=== PATIENT | female | born 1955 | race Caucasian/White ===

== ENCOUNTER → 2016-11-22 | Outpatient (CLI) | payer OTHER ==
[~2016-11-22] MED LIST: CALC500T PO; CHOL100013 PO; FAMO-63 PO; LEVO88TA4 PO; PIRO20CA2 PO
== END | disposition home or self-care (01) ==
LOC: PNCL 12:34
PROVIDERS: ATTEND Anesthesiology
DX: M54.16 Radiculopathy, lumbar region (principal)
CPT/HCPCS: 99214

== ENCOUNTER → 2016-12-06 | Outpatient (CLI) | payer OTHER ==
[~2016-12-06] MED LIST changes: +IOHEXOL 180 MG/ML 10 ML VIAL. ONE; +methylPREDNISolone ACETATE 40 MG/ML VIAL. ONE; +methylPREDNISolone ACETATE 80 MG/ML VIAL. ONE
--- NOTE | 2016-12-06 11:23 | PAIN ---
DATE OF SERVICE: 12/06/2016 PROGRESS NOTE FOR PAIN CLINIC DIAGNOSES: Lumbar radiculopathy with lumbar spondylosis and lumbar herniated disk. HISTORY OF PRESENT ILLNESS: The patient is a 61-year-old female who returns for followup status post initial evaluation and preauthorization for a lumbar epidural steroid injection. The patient reports still significant pain in the low back, worse in the left hip and posterior gluteus as well as the posterior thigh, rates it 1 on a scale of 10 currently. The patient reports it is aching and dull with radiating pain in the left leg as noted. The patient reports no new motor or sensory deficits, no new bowel or bladder incontinence or other complaints. The patient reports she has been having some difficulty sleeping. She states about 5 hours a night, sometimes longer, but when she does have the pain awaken her, she has to reposition, get out of bed, change positions and is able to get back to sleep. PHYSICAL EXAMINATION: VITAL SIGNS: The patient's blood pressure 132/76, pulse 56, respirations are 18, temperature 98.0 degrees Fahrenheit. Height is 5 feet 6 inches, weight is 144 pounds. GENERAL: The patient is awake, alert, oriented, appropriate, very pleasant demeanor. HEENT: Head shows normocephalic, atraumatic. The patient wears eyeglasses. Extraocular movements are intact and symmetrical. Oral cavity shows mucous membranes moist and pink. Dentition is intact. NECK: Shows anterior throat supple without palpable lymphadenopathy noted. Swallow reflex is symmetrical. CHEST: Shows normal on inspection. Breath sounds are clear to auscultation bilaterally. HEART: Shows S1 and S2 clear. ABDOMEN: Soft, nontender, nondistended. No palpable organomegaly. No rebound or guarding demonstrated. BACK: Shows spine grossly in the midline. Lumbar paraspinous muscle shows some symmetrical without atrophy, hypertrophy or asymmetry. Mild tenderness to moderate tenderness in the low lumbar distribution diffusely without radiation. No tenderness over the sacrum and sacroiliac regions. The patient has good rotation and motion of the lumbar spine, both laterally as well as extension and flexion without difficulty. EXTREMITIES: The patient's lower extremities show deep tendon reflexes at 2+ in the patellar, 1+ tendo-calcaneus tendons are equal. Motor exam is strong with 5/5 dorsiflexion and extension as well as quadriceps and hamstring flexion and are symmetrical. Options were discussed with the patient and the patient's old chart was reviewed as her current medication regimen updated. Current review of systems updated today as well. We will proceed with a lumbar epidural steroid injection today with fluoroscopic guidance. Risks were again discussed including, but not limited to bleeding, infection, possibility of epidural hematoma, subsequent neurologic compromise, dural puncture, headaches, spinal cord and/or nerve damage, side effects of steroid medication and poor results regarding pain control. The patient understands and wishes to proceed. The patient will return to clinic in approximately 2 weeks for followup, was counseled on return appointment, activity level, and side effects to be aware of. DIAGNOSES: Lumbar radiculopathy with lumbar spondylosis and lumbar herniated disk. PROCEDURE: Lumbar epidural steroid injection in translaminar approach at the L5-S1 level using C-arm fluoroscopic guidance under sterile prep and drape using local anesthetic. MEDICATION INJECTED: A total of 120 mg of Depo-Medrol plus 10 mL of preservative-free normal saline, and 2 mL of Isovue for contrast. CONDITION AT DISCHARGE: Stable. The patient tolerated the procedure well, had no complications. DRAKE WHITE MD DR: ANABELLA/rg JOB#: [id number] / [id number]
== END | disposition home or self-care (01) ==
LOC: PNCL 09:46
PROVIDERS: ATTEND Anesthesiology
DX: M51.16 Intervertebral disc disorders with radiculopathy, lumbar region (principal); M47.26 Other spondylosis with radiculopathy, lumbar region
CPT/HCPCS: 62323; J1030; J1040

== ENCOUNTER → 2016-12-20 | Outpatient (CLI) | payer OTHER ==
--- NOTE | 2016-12-20 19:26 | PAIN ---
DATE OF SERVICE: 12/20/2016 DIAGNOSES: Lumbar radiculopathy with lumbar spondylosis and lumbar herniated disk. HISTORY OF PRESENT ILLNESS: The patient is a 61-year-old female who returns for followup status post lumbar epidural steroid injection x 1. The patient reports about 20% improvement after the first injection in the low back and left lower extremity. The patient reports that the leg is doing much better, but still pain in the gluteus and the low back on the left side. The patient reports as a 1 on a scale of 10 at its worst and is doing quite a bit better as far as activity level goes. Walking, standing, and changing position is much more comfortable performing activities of daily living without significant impairments. Reports, she is sleeping well at night about 8 hours, does not awaken her from sleep much, feels much better with sitting or lying down. The patient has been doing some light jogging and running as well, which has been fairly tolerable, but still a significant pain in the low back and left hip. The patient reports it as an aching quality, occasionally shooting, but mostly staying in the low back and hips PHYSICAL EXAMINATION: VITAL SIGNS: Today, the patient's blood pressure is 126/78, pulse 78, respirations are 18, temperature 98.1 degrees Fahrenheit. Height is 5 feet 6 inches, weight is 144 pounds. GENERAL: The patient is awake, alert, oriented, appropriate, very pleasant demeanor. HEENT: Head shows normocephalic, atraumatic. Extraocular movements are intact and symmetrical. Oral cavity shows mucous membranes moist and pink. Dentition is intact. NECK: Shows anterior throat supple without palpable lymphadenopathy noted. Swallow reflex is symmetrical. CHEST: Shows normal on inspection. Breath sounds are clear to auscultation bilaterally. HEART: Shows S1 and S2 clear. No murmurs auscultated. ABDOMEN: Soft, nontender, nondistended. No palpable organomegaly is noted. No rebound or guarding demonstrated. BACK: Shows spine grossly in midline. Lumbar paraspinous muscle shows symmetrical on inspection with palpation, shows some moderate tenderness with palpation bilaterally. EXTREMITIES: Lower extremities show deep tendon reflexes 2+ in the patellar, 1+ tendo calcaneus tendons. Motor exam is strong with 5/5 dorsiflexion, extension, quadriceps and hamstring flexion equal and symmetrical. Options were discussed with the patient and the patient's old chart was reviewed as her current medication regimen updated. Current review of systems updated today and we will proceed with a second lumbar epidural steroid injection today with fluoroscopic guidance. Risks were again discussed including, but not limited to bleeding, infection, possibility of epidural hematoma and subsequent neurologic compromise, dural puncture, headaches, spinal cord and/or nerve damage, side effects of steroid medication and poor results regarding pain control. The patient understands and wishes to proceed. The patient will return to clinic in approximately 2 weeks for followup. She was counseled to return appointment, activity level and side effects to be aware of. DIAGNOSES: Lumbar radiculopathy with lumbar spondylosis, lumbar herniated disk. PROCEDURES: Lumbar epidural steroid injection in translaminar approach in the L5-S1 level with C-arm fluoroscopic guidance under sterile prep and drape with local anesthetic. MEDICATION INJECTED: Total of 120 mg Depo-Medrol plus 10 mL of preservative-free normal saline and 2 mL of Isovue for contrast. CONDITION AT DISCHARGE: Stable. The patient tolerated procedure well, had no complications. DRAKE WHITE MD DR: ANBAELLA/rg JOB#: [id number] / [id number]
== END | disposition home or self-care (01) ==
LOC: PNCL 12:45
PROVIDERS: ATTEND Anesthesiology
DX: M51.16 Intervertebral disc disorders with radiculopathy, lumbar region (principal); M47.26 Other spondylosis with radiculopathy, lumbar region
CPT/HCPCS: 62323; J1030; J1040

== ENCOUNTER → 2017-01-10 | Outpatient (CLI) | payer OTHER ==
--- NOTE | 2017-01-11 00:49 | PN ---
DATE: 01/10/2017 DIAGNOSES: Lumbar radiculopathy with lumbar spondylosis and lumbar herniated disk. HISTORY OF PRESENT ILLNESS: The patient is a 61-year-old female who returns for followup status post lumbar epidural steroid injection times 2. The patient reports doing much better about 80% or so. After last injection, the patient is very pleased with her progress thus far no new motor or sensory deficits or other complaints, still some pain in the low back, more on the left side, but not much at all, radiating to the lower extremity. The patient reports the pain to 4 on a scale of 10, it is absolutely worst as a 1. Otherwise, the patient reports she is sleeping well at night, does not awaken her from sleep. She has been increasing her activity, still somewhat apprehensive in about increasing too much of activity, but doing much better. The patient reports no new motor or sensory deficits. No new bowel or bladder incontinence or other complaints. PHYSICAL EXAMINATION: VITAL SIGNS: The patient's blood pressure 118/83, pulse 71, respirations 20, temperature 97.8 degrees Fahrenheit, height is 5 feet 6 inches, weight 145 pounds. GENERAL: The patient is awake, alert, oriented, appropriate, very pleasant demeanor. HEENT: Shows normocephalic, atraumatic. Extraocular movements are intact and symmetrical. Oral cavity shows mucous membranes moist and pink. Dentition is intact. NECK: Shows anterior throat supple without palpable lymphadenopathy noted. Swallow reflex is symmetrical. CHEST: Shows normal on inspection. Breath sounds are clear to auscultation bilaterally. HEART: Shows S1 and S2 clear. ABDOMEN: Soft, nontender, nondistended. BACK: Shows spine grossly in midline. Lumbar paraspinous muscle shows symmetrical, on inspection with palpation shows some moderate tenderness along the low lumbar distribution, more in the left than the right, but only very diffusely and only very mildly. No radiation demonstrated. The patient's lower extremities show deep tendon reflexes at 2+ in the patellar, 1+ tendo-calcaneus tendons. Motor exam is strong with 5/5 dorsiflexion, extension, quadriceps and hamstring flexion and equal. Peripheral pulses are 2+ posterior tibial bilaterally. No peripheral edema is noted. Options were discussed with the patient and the patient's old chart was reviewed as her current medication regimen updated. Current review of systems updated today as well. We will proceed with a third in a series of lumbar epidural steroid injection with fluoroscopic guidance. Risks were again discussed including, but not limited to bleeding, infection, possibility of epidural hematoma and subsequent neurologic compromise, dural puncture, headaches, spinal cord and/or nerve damage, side effects of steroid medication and poor results regarding pain control. The patient understands and wishes to proceed. The patient will return to clinic in approximately 2 weeks for followup, was counseled on return appointment, activity level and side effects to be aware of. DIAGNOSIS: Lumbar radiculopathy with lumbar spondylosis, and lumbar herniated disk. PROCEDURE: Lumbar epidural steroid injection in translaminar approach at L5-S1 level using C-arm fluoroscopic guidance under sterile prep and drape using local anesthetic. MEDICATION INJECTED: A total of 120 mg Depo-Medrol plus 10 mL of preservative-free normal saline, and 2 mL of Isovue for contrast. CONDITION ON DISCHARGE: Stable. The patient tolerated the procedure well, had no complications. DRAKE WHITE MD DR: ANABELLA/rg JOB#: [id number] / [id number]
== END | disposition home or self-care (01) ==
LOC: PNCL 13:19
PROVIDERS: ATTEND Anesthesiology
DX: M51.16 Intervertebral disc disorders with radiculopathy, lumbar region (principal); M47.26 Other spondylosis with radiculopathy, lumbar region
CPT/HCPCS: 62323; J1030; J1040

== ENCOUNTER → 2017-07-26 | Outpatient (CLI) | payer OTHER | END | disposition home or self-care (01) | LOC: PNCL 10:28 | DX: M51.16 Intervertebral disc disorders with radiculopathy, lumbar region (principal); M47.26 Other spondylosis with radiculopathy, lumbar region; Z98.890 Other specified postprocedural states; Z79.899 Other long term (current) drug therapy | CPT/HCPCS: 99212 ==

== ENCOUNTER → 2017-08-16 | Outpatient (CLI) | payer OTHER ==
[~2017-08-16] MED LIST changes: -CALC500T PO; -CHOL100013 PO; -FAMO-63 PO; +IOHEXOL 180 MG/ML 10 ML VIAL.; -IOHEXOL 180 MG/ML 10 ML VIAL. ONE; -LEVO88TA4 PO; -PIRO20CA2 PO; +methylPREDNISolone ACETATE 40 MG/ML VIAL.; -methylPREDNISolone ACETATE 40 MG/ML VIAL. ONE; +methylPREDNISolone ACETATE 80 MG/ML VIAL.; -methylPREDNISolone ACETATE 80 MG/ML VIAL. ONE
== END | disposition home or self-care (01) ==
LOC: PNCL 07:45
DX: M51.16 Intervertebral disc disorders with radiculopathy, lumbar region (principal); M47.26 Other spondylosis with radiculopathy, lumbar region
CPT/HCPCS: 62323; J1030; J1040; Q9965

== ENCOUNTER → 2018-03-18 | Outpatient (CLI) | payer OTHER ==
[~2018-03-18] MED LIST changes: +BACL10TA PO; +CALC500T PO; +CHOL100013 PO; +CYAN500L4 SL; +CYCL10TA2 PO; +ESTR42.53 VG; +FAMO-63 PO; -IOHEXOL 180 MG/ML 10 ML VIAL.; +LEVO88TA4 PO; +MIRA25TA PO; +NITR100C63 PO; +OXYB5TAB33 PO; +PIRO20CA2 PO; -methylPREDNISolone ACETATE 40 MG/ML VIAL.; -methylPREDNISolone ACETATE 80 MG/ML VIAL.
--- NOTE | 2018-03-19 01:14 | PAIN ---
DATE OF SERVICE: 03/18/2018 DIAGNOSIS: Lumbar radiculopathy with lumbar spondylosis and lumbar herniated disk. HISTORY OF PRESENT ILLNESS: The patient is a 62-year-old female who returns for followup status post lumbar epidural steroid injection x 1, 08/16/2017. The patient did very well with 90% improvement in the low back and left lower extremity pain. The patient reports still significant pain in the low back and left leg, worse with standing, walking, changing positions, better with lying down, but is beginning to awaken her from sleep again. The patient reports it is coming back over the past 2-3 weeks and was doing very well for several months after the injection. The patient reports pain now at 6 on a scale of 10 at its worst, 5 on average, 2 at least and is a 5 today. The patient reports worse with standing, walking, changing positions, difficulty with lying on her back, which does awaken her from sleep, which is better with lying on her right side. The patient reports no new motor or sensory deficit. She was initially increasing her activity with greater ease and comfort, distance walking, doing work activities, household activities, traveling with greater ease getting in and out of the car. The patient reports no motor or sensory deficits. No loss of motor function, but significant fatigability in the lower extremities with activity. The patient reports the pain is sharp in the low back, aching and dull, tight, shooting, cramping and becoming more radiating, more constant. PHYSICAL EXAMINATION:: VITAL SIGNS: Blood pressure is 134/87, pulse 74, respirations are 18, temperature 97.4 degrees Fahrenheit, height is 5 feet 6 inches, weight 143 pounds. GENERAL: The patient is awake, alert, oriented, appropriate, very pleasant demeanor. HEENT: Shows normocephalic, atraumatic. Extraocular movements are intact and symmetrical. Oral cavity: Mucous membranes are moist and pink. Dentition is intact. NECK: Shows anterior throat supple without palpable lymphadenopathy noted. Swallow reflex is symmetrical. CHEST: Shows normal on inspection. Breath sounds are clear to auscultation bilaterally. HEART: Shows S1, S2 clear. No murmurs auscultated. ABDOMEN: Soft, nontender, nondistended. No palpable organomegaly is noted. No rebound or guarding demonstrated. BACK: Shows spine grossly in the midline. Normal appearing thoracic kyphosis and minor flattening of lumbar lordotic curvature. Lumbar paraspinous muscle shows symmetrical on inspection. On palpation shows some mild tenderness, but only diffusely without radiation. EXTREMITIES: Lower extremities show deep tendon reflexes at 2+ in the patellar, 1+ tendo-calcaneus tendons. Motor exam is strong with 5/5 dorsiflexion and extension, equal bilaterally. Peripheral pulses are 1+ posterior tibia. No peripheral edema is noted. Options were discussed with the patient. The patient's old chart was reviewed as is her current medication regimen updated. Current review of systems is updated today as well. We will preauthorize the patient for a second in the series of lumbar epidural steroid injection as she had done very well with the first injection, still with radicular pain in L5-S1 dermatomal pattern in the lower extremities, worse on the left side. The patient will continue with stretching and strengthening exercises on her own as she has been doing this and walking daily as best she can tolerate. We encouraged her to continue both of these. The patient will follow up once preapproval is obtained and we will plan on lumbar epidural steroid injection at that time. DRAKE WHITE MD DR: ANABELLA/rg JOB#: [id number] / [id number]
== END | disposition home or self-care (01) ==
LOC: PNCL 14:06
PROVIDERS: ATTEND Anesthesiology
DX: M51.16 Intervertebral disc disorders with radiculopathy, lumbar region (principal); M47.896 Other spondylosis, lumbar region
CPT/HCPCS: 99212

== ENCOUNTER → 2018-04-17 | Outpatient (CLI) | payer OTHER ==
[~2018-04-17] MED LIST changes: +IOHEXOL 180 MG/ML 10 ML VIAL. ONE; +methylPREDNISolone ACETATE 40 MG/ML VIAL. ONE; +methylPREDNISolone ACETATE 80 MG/ML VIAL. ONE
--- NOTE | 2018-04-17 18:17 | PAIN ---
DATE OF SERVICE: 04/17/2018 PROGRESS NOTE FOR PAIN CLINIC DIAGNOSIS: Lumbar radiculopathy with lumbar spondylosis and lumbar herniated disk. HISTORY OF PRESENT ILLNESS: The patient is a 62-year-old female who returns for followup status post lumbar epidural steroid injection x 1 on 08/16/2017. The patient did very well with this with approximately 90% improvement. The pain began to return and we had seen her in March 2018, was waiting preauthorization. She has obtained that now and would like to proceed with a lumbar epidural steroid injection. The patient reports still pain in the low back, somewhat in the left lower extremity greater than right, posterior gluteus, posterior thigh, posterior calf, mostly in the back itself. The patient reports it is a 9 on a scale of 10 at its worst, 3 on average, 0 its least and is a 3 today. The patient reports it is dull, stabbing, off and on in intensity, worse with walking, standing, changing positions, better with sitting or lying down. It does not awaken her from sleep at night. The patient reports it is becoming little bit worse now than it was a month ago, but no new motor or sensory deficits. The patient reports no bowel or bladder incontinence or other complaints. PHYSICAL EXAMINATION: VITAL SIGNS: The patient's blood pressure is 126/71, pulse 87, respirations are 18, temperature 98.0 degrees Fahrenheit. Height is 5 feet 6 inches, weight is 143 pounds. GENERAL: She is awake, alert, oriented, appropriate, very pleasant demeanor. HEENT: Head shows normocephalic, atraumatic. Extraocular movements are intact and symmetrical. Oral cavity, mucous membranes moist and pink. Dentition is intact. NECK: Shows anterior throat supple without palpable lymphadenopathy noted. Swallow reflex symmetrical. CHEST: Shows normal with inspection. Breath sounds clear to auscultation bilaterally. HEART: Shows S1, S2 clear. No murmurs auscultated. ABDOMEN: Soft, nontender, nondistended. No palpable organomegaly is noted. No rebound or guarding demonstrated. BACK: Shows spine grossly in the midline. Normal appearing thoracic kyphosis and lumbar lordotic curvature. Lumbar paraspinous muscle shows symmetrical on inspection, on palpation shows mild to moderate tenderness, but only diffusely in the lumbar paraspinous muscles in the low lumbar distribution, slightly more on the left than the right, but symmetrical. No trigger points or radiation. The patient has good rotational motion of the lumbar spine both laterally as well as extension and flexion without difficulty. EXTREMITIES: The patient's lower extremities showed 2+ in the patellar and 1+ in the tendo calcaneus tendons. Motor exam is strong with 5/5 dorsiflexion, extension, quadriceps and hamstring flexion bilaterally. Peripheral pulses are 1+. No peripheral edema is noted. Options were discussed with the patient. The patient's old chart was reviewed as well as her current medication regimen updated. Current review of systems updated today as well. We will proceed with a second in the series of lumbar epidural steroid injection under fluoroscopic guidance. Risks were again discussed including, but not limited to, bleeding, infection, possibility of epidural hematoma, subsequent neurologic compromise, dural puncture, headaches, spinal cord and/or nerve damage, side effects of steroid medication and poor results regarding pain control. The patient understands and wished to proceed. The patient will return to clinic in approximately 2 weeks for followup, was counseled on return appointment, activity level and side effects to be aware of. DIAGNOSES: Lumbar radiculopathy with lumbar spondylosis, lumbar herniated disk. PROCEDURE: Lumbar epidural steroid injection, translaminar approach at L5-S1 level using C-arm fluoroscopic guidance under sterile prep and drape using local anesthetic. MEDICATION INJECTED: A total of 120 mg Depo-Medrol plus 10 mL of preservative-free normal saline and 2 mL of Isovue for contrast. CONDITION AT DISCHARGE: Stable. The patient tolerated procedure well, had no complications. DRAKE WHITE MD DR: ANABELLA/rg JOB#: [id number] / [id number]
== END | disposition home or self-care (01) ==
LOC: PNCL 14:05
PROVIDERS: ATTEND Anesthesiology
DX: M51.16 Intervertebral disc disorders with radiculopathy, lumbar region (principal); M47.26 Other spondylosis with radiculopathy, lumbar region
CPT/HCPCS: 62323; J1030; J1040; Q9965

== ENCOUNTER → 2018-05-07 | Outpatient (CLI) | payer OTHER ==
[~2018-05-07] MED LIST changes: -IOHEXOL 180 MG/ML 10 ML VIAL. ONE; -methylPREDNISolone ACETATE 40 MG/ML VIAL. ONE; -methylPREDNISolone ACETATE 80 MG/ML VIAL. ONE
--- NOTE | 2018-05-07 22:09 | PAIN ---
DATE OF SERVICE: 05/07/2018 PROGRESS NOTE FOR PAIN CLINIC DIAGNOSES: Lumbar radiculopathy with lumbar spondylosis and lumbar herniated disk. HISTORY OF PRESENT ILLNESS: The patient is a 62-year-old female who returns for followup status post lumbar epidural steroid injection x 1 with reports about 80% improvement for the first 3 weeks since the injection. The patient reports it is beginning to return more in the left side, in the back into the left posterior hip slightly but across the low back itself into the posterior gluteus, posterior thigh, posterior calf, much better than it was. She has been increasing her activity with greater ease and walking, changing positions, doing work activities as well as home activities with greater ease and comfort, traveling with better ease. The patient reports no new motor or sensory deficits and no new bowel or bladder incontinence, feels much better with sitting or lying down but still with some radicular pain into the left lower extremity as noted. The patient reports it is tight, also cramping in the back with shooting, radiating pain in the left lower extremity as described. The patient reports it is a 3 on a scale of 10 at its worst, on average and a 1 at its least and is a 3 today. The patient reports no new motor or sensory deficits and no bowel or bladder incontinence. PHYSICAL EXAMINATION: VITAL SIGNS: The patient's blood pressure 136/85, pulse 67, respirations are 18 and temperature is 98.3 degrees Fahrenheit. Height 5 feet 6 inches and weighs 142 pounds. GENERAL: The patient is awake, alert, oriented, appropriate and very pleasant demeanor. HEENT: Head shows normocephalic and atraumatic. Extraocular movements are intact and symmetrical. Oral cavity: Mucous membranes moist and pink. Dentition is intact. NECK: Shows anterior throat supple without palpable lymphadenopathy noted. Swallow reflex is symmetrical. CHEST: Shows normal on inspection. Breath sounds clear to auscultation bilaterally. HEART: Shows S1 and S2 clear. No murmurs auscultated. ABDOMEN: Soft, nontender and nondistended. No palpable organomegaly is noted. No rebound or guarding demonstrated. BACK: Shows spine grossly in the midline. Normal appearing thoracic kyphosis and lumbar lordotic curvature. Lumbar paraspinous musculature shows symmetrical on inspection, on palpation shows some moderate tenderness but only diffusely without radiation. The patient has good rotational motion of the lumbar spine, both laterally as well as extension and flexion without significant pain reported. EXTREMITIES: Lower extremities show deep tendon reflexes at 2+ in the patellar, 1+ tendo-calcaneus tendons are equal. Motor exam is strong with 5/5 dorsiflexion and extension as well as quadriceps and hamstring flexion. The patient has a mild straight leg raise on the left, which is positive about 45 degrees but decreased with knee flexion almost completely. Right side is negative. Gaenslen's and Dom's maneuvers are negative bilaterally. The patient is able to stand, stand on her toes without significant difficulty, walks with a slight favoring gait, does appear to limp slightly with the left lower extremity being favored but only very moderately, does not use any assistive devices to ambulate. Options were discussed with the patient. The patient's old chart was reviewed as well as her current medication regimen updated. Current review of systems updated today as well. We will preauthorize the patient for a second lumbar epidural steroid injection. Did very well after the first injection, still with a L5-S1 dermatomal distribution radiculopathy in the left lower extremity. Again, the patient will continue with stretching and strengthening exercises that she has been doing, will continue walking daily as much as she can tolerate and we will have her return in approximately 2 weeks for a second lumbar epidural steroid injection at that time. DRAKE WHITE MD DR: ANABELLA/rg JOB#: [id number] / [id number]
== END | disposition home or self-care (01) ==
LOC: PNCL 14:54
PROVIDERS: ATTEND Anesthesiology
DX: M47.26 Other spondylosis with radiculopathy, lumbar region (principal); M51.26 Other intervertebral disc displacement, lumbar region
CPT/HCPCS: G0463

== ENCOUNTER → 2018-05-13 | Outpatient (CLI) | payer OTHER ==
[~2018-05-13] MED LIST changes: -CALC500T PO; +CALC500T31 PO; +IOHEXOL 180 MG/ML 10 ML VIAL. ONE; +methylPREDNISolone ACETATE 40 MG/ML VIAL. ONE; +methylPREDNISolone ACETATE 80 MG/ML VIAL. ONE
--- NOTE | 2018-05-14 03:41 | PAIN ---
DATE OF SERVICE: 05/13/2018 PROGRESS NOTE FOR PAIN CLINIC DIAGNOSES: Lumbar radiculopathy with lumbar spondylosis and lumbar herniated disk. HISTORY OF PRESENT ILLNESS: The patient is a 62-year-old female who returns for followup status post evaluation and preauthorization for a second lumbar epidural steroid injection. She did very well after the first injection about 80% improvement, now the pain returning low back and left lower extremity as it was previously. The patient reports no new motor or sensory deficits, no new bowel or bladder incontinence or other complaints. The patient reports the pain is 3 on a scale of 10 at its worst, least and its average and a 3 today. The patient reports it is dull, aching, shooting into the left leg as it was, posterior gluteus, posterior thigh, posterior calf, worse with walking, standing, better with sitting or lying down, does not awaken her from sleep recently. The patient reports no other changes. PHYSICAL EXAMINATION: VITAL SIGNS: The patient's blood pressure 124/80, pulse 67, respirations are 18, temperature 98.3 degrees Fahrenheit, height is 5 feet 6 inches and weight is 142 pounds. GENERAL: The patient is awake, alert, oriented, appropriate and very pleasant demeanor. HEENT: Head shows normocephalic and atraumatic. Extraocular movements are intact and symmetrical. Oral cavity: Mucous membranes are moist and pink. Dentition is intact. NECK: Shows anterior throat is supple without palpable lymphadenopathy noted. Swallow reflex is symmetrical. CHEST: Shows normal with inspection. Breath sounds are clear to auscultation bilaterally. HEART: Shows S1 and S2 clear. No murmurs are auscultated. ABDOMEN: Soft, nontender and nondistended. No palpable organomegaly is noted. No rebound or guarding demonstrated. BACK: Shows spine grossly in the midline. Normal appearing thoracic kyphosis and some slight flattening of the lumbar lordotic curvature. Lumbar paraspinous muscle shows symmetrical on inspection. On palpation shows some moderate tenderness but only diffusely in the low lumbar distribution bilaterally. The patient has good rotational motion of the lumbar spine both laterally as well as extension and flexion without difficulty. EXTREMITIES: Lower extremities show deep tendon reflexes at 2+ in the patella and 1+ tendo calcaneus tendons are equal. Motor exam is strong with 5/5 dorsiflexion and extension as well as quadriceps and hamstring flexion and equal and symmetrical bilaterally. Options were discussed with the patient. The patient's old chart was reviewed as was her current medication regimen updated. Current review of systems updated today as well. We will proceed with a lumbar epidural steroid injection #2 in the series with fluoroscopic guidance. Risks were again discussed including, but not limited to bleeding, infection, possibility of epidural hematoma, subsequent neurologic compromise, dural puncture, headaches, spinal cord and/or nerve damage, side effects of steroid medication and poor results regarding pain control. The patient understands and wished to proceed. The patient will return to the clinic in approximately 2 weeks for followup, was counseled as to return appointment, activity level and side effects to be aware of. DIAGNOSIS: Lumbar radiculopathy with lumbar spondylosis, lumbar herniated disk. PROCEDURE: Lumbar epidural steroid injection, translaminar approach L5-S1 level using C-arm fluoroscopic guidance under sterile prep and drape using local anesthetic. MEDICATION INJECTED: A total of 120 mg Depo-Medrol plus 10 mL of preservative-free normal saline and 2 mL of Isovue for contrast. CONDITION AT DISCHARGE: Stable. The patient tolerated the procedure well and had no complications. DRAKE WHITE MD DR: ANABELLA/rg JOB#: [id number] / [id number]
== END | disposition home or self-care (01) ==
LOC: PNCL 14:40
PROVIDERS: ATTEND Anesthesiology
DX: M51.16 Intervertebral disc disorders with radiculopathy, lumbar region (principal); M47.26 Other spondylosis with radiculopathy, lumbar region
CPT/HCPCS: 62323; J1030; J1040; Q9965

== ENCOUNTER → 2020-10-05 | Outpatient (CLI) | payer OTHER ==
[~2020-10-05] MED LIST changes: -IOHEXOL 180 MG/ML 10 ML VIAL. ONE; -methylPREDNISolone ACETATE 40 MG/ML VIAL. ONE; -methylPREDNISolone ACETATE 80 MG/ML VIAL. ONE
--- NOTE | 2020-10-05 10:19 | PDOC ---
Progress Note - Pain Clinic Date of Service: DOS: DATE: 10/05/20 TIME: 10:17 Diagnosis: Dx: Lumbar radiculopathy with lumbar spondylosis lumbar degenerative disc disease and lumbar herniated disc History or Present Illness: HPI: 65-year-old female returns for follow-up status post lumbar epidural steroid injection most recently May 13, 2018. Patient did very well about 80 to 90% 3 months or so the pain began to return. Patient reports that for that she is doing very well with distance walking doing household activities work activities greater ease and comfort travel with greater ease and comfort sleeping through the night patient reports still better with sitting and laying down does not awaken her from sleep frequently can occasionally patient reports is worse with standing walking changing positions getting up from a seated position patient rates her pain is a 10 on scale 10 is worse over the past week 5 on average to its least is a 5 today. Patient describes pain is radiating burning in the low back rating the right lower extremity posterior gluteus posterior thigh posterior calf and radicular pattern. Patient has history of lumbar herniated disc at the L5-S1 level. Patient reports no new motor or sensory deficits no new bowel or bladder incontinence or other complaints. Patient reports she been helping her grandson with home schooling over the past year sitting in a prolonged position of leaning to her right side which she feels is increased pain and has noticed it much more significantly over the past several months as noted. Patient has been doing stretching strength exercises daily and she learned from physical therapy about a year ago and reports this helps but does not decrease the pain long-term. Physical Exam: VS: Blood pressure is 125/76 pulse 68 respirations 18 temperature 98.2 F height is 5 feet 6 inches weight 143 pounds PE: PHYSICAL EXAMINATION: GENERAL: The patient is awake, alert, oriented, appropriate, very pleasant demeanor HEENT: Shows normocephalic, atraumatic. Extraocular movements are intact and symmetrical. Oral cavity: Mucous membranes moist and pink. Dentition is intact. NECK: Shows anterior throat supple without palpable lymphadenopathy noted. Swallow reflex symmetrical. CHEST: Shows normal on inspection. Breath sounds are clear bilaterally, no rales rhonchi wheezes auscultated. HEART: Shows S1, S2 clear. No murmurs auscultated. ABDOMEN: Soft, nontender, nondistended. No palpable organomegaly is noted. No rebound or guarding demonstrated. BACK: Shows spine grossly in the midline. Normal-appearing cervical lordotic curvature. There is slightly increased thoracic kyphosis, some minor flattening of the lumbar lordotic curvature. Lumbar paraspinous muscles show symmetrical on inspection, on palpation shows some moderate tenderness diffusely throughout the upper, middle and lower distribution of the paraspinous muscles bilaterally and also into the lower thoracic paraspinous musculature, firm and tender, but without specific trigger points, without radiation of pain. The patient has good rotational motion of the lumbar spine, both laterally as well as extension and flexion without significant difficulty. No tenderness over the spinous processes, sacrum or sacroiliac regions. EXTREMITIES: Lower extremities show deep tendon reflexes 2+ in the patellar and tendo calcaneus tendons. Motor exam is 4 on a scale of 5 with right dorsiflexion, extension, quadriceps and hamstring flexion and 5/5 on the left. Peripheral pulses are 1+ posterior tibial. No peripheral edema is noted bilaterally. Lower extremities are warm and dry to touch, equal in color and appearance. Straight leg raise noted to be [] on the right about 45 degrees, left side is negative. Gaenslen's and Dom's maneuvers are negative bilateral as well. SKIN: Shows warm and dry, good turgor. No edema. No sores, rashes or bruising throughout. Procedure: Procedure: Options were discussed with the patient. Patient chart was reviewed as her [place] medication regimen updated current review of systems updated today as well. We will preauthorize patient for lumbar epidural steroid injections doing very well with these in the past with similar radicular pattern in the L5-S1 distribution right side. Meantime patient will continue with stretching strength exercises also oral analgesics and anti-inflammatories as currently. Medication Injected: Med Injected: None Condition at Discharge: Condition at Discharge: Condition at discharge is stable. DRAKE WHITE MD Oct 05, 2020 10:19
== END | disposition home or self-care (01) ==
LOC: PNCL 09:30
PROVIDERS: ATTEND Anesthesiology
DX: M51.16 Intervertebral disc disorders with radiculopathy, lumbar region (principal); M47.26 Other spondylosis with radiculopathy, lumbar region; Z79.899 Other long term (current) drug therapy
CPT/HCPCS: 99212; G0463

== ENCOUNTER → 2020-10-17 | Outpatient (CLI) | payer OTHER ==
[~2020-10-17] MED LIST changes: +IOHEXOL 180 MG/ML 10 ML VIAL. ONE; +methylPREDNISolone ACETATE 40 MG/ML VIAL. ONE; +methylPREDNISolone ACETATE 80 MG/ML VIAL. ONE
--- NOTE | 2020-10-17 09:31 | PDOC4 ---
PROCEDURE Procedure Patient was consented for lumbar epidural steroid injection. Risks were dis cussed including but not limited to: Bleeding, infection, possibility of epidural hematoma and subsequent neurological compromise, dural puncture, headaches, spinal cord and/or nerve damage, side effects of steroid medication, and poor results regarding pain control. Patient understands and wished to proceed. Procedure is lumbar epidural steroid injection under local anesthetic using sterile prep and drape at the L5 S1 level using C-arm fluoroscopic guidance in both AP and lateral views medications injected is 120 mg Depo-Medrol +10mL preservative-free normal saline and 2 mL contrast- condition at discharge is stable patient tolerated procedure well had no complications. DRAKE WHITE MD Oct 17, 2020 09:31
--- NOTE | 2020-10-17 09:31 | PDOC ---
Progress Note - Pain Clinic Date of Service: DOS: DATE: 10/17/20 TIME: 09:28 Diagnosis: Dx: Lumbar radiculopathy with lumbar spondylosis, herniated lumbar disc and lumbar degenerative disc disease History or Present Illness: HPI: 65-year-old female returns for follow-up status post initial valuation and preauthorization for lumbar epidural steroid injection. Patient reports still significant pain low back right lower extremity posterior gluteus posterior thigh posterior calf radiating to the ankle worse with walking standing changing positions describes radiating burning aching in the low back shooting and tight in the right lower extremity worse with activity patient reports she stumbled while doing a 5K race a few weeks ago and this is exacerbated the pain as well patient rates pain is a 10 on scale 10 is worse over the past week 9 on average 5 its least and is a 5 today. Patient reports no new motor or sensory deficits no new bowel or bladder cons or complaints. Patient reports better with sitting or laying down generally is not awaken her from sleep at night with walking standing, more difficult especially with some increased fatigability with the right lower extremity. Physical Exam: VS: Blood pressure is 132/81 pulse 63 respirations 18 temperature 98.6 F is 5 feet 6 inches weight 142 pounds PE: PHYSICAL EXAMINATION: GENERAL: The patient is awake, alert, oriented, appropriate, very pleasant demeanor HEENT: Shows normocephalic, atraumatic. Extraocular movements are intact and symmetrical. Oral cavity: Mucous membranes moist and pink. NECK: Shows anterior throat supple without palpable lymphadenopathy noted. Swallow reflex symmetrical. CHEST: Shows normal on inspection. Breath sounds are clear bilaterally. HEART: Shows S1, S2 clear. No murmurs auscultated. ABDOMEN: Soft, nontender, nondistended. BACK: Shows spine grossly in the midline. Normal-appearing cervical lordotic curvature. There is slightly increased thoracic kyphosis, some minor flattening of the lumbar lordotic curvature. Lumbar paraspinous muscles show symmetrical on inspection, on palpation shows some moderate tenderness diffusely throughout the upper, middle and lower distribution of the paraspinous muscles without specific trigger points, without radiation of pain. The patient has good rotational motion of the lumbar spine, both laterally as well as extension and flexion without significant difficulty. EXTREMITIES: Lower extremities show deep tendon reflexes 2 in the patellar and tendo calcaneus tendons. Motor exam is 4 on a scale of 5 with right dorsiflexion, extension, quadriceps and hamstring flexion and 5/5 on the left. Peripheral pulses are 1+ posterior tibial. No peripheral edema is noted bilaterally. Lower extremities are warm and dry to touch, equal in color and appearance. SKIN: Shows warm and dry, good turgor. No edema. No sores, rashes or bruising throughout. Procedure: Procedure: Options were discussed with patient. Patient chart was reviewed as her current medication regimen updated current review of systems updated today as well. We will proceed with a lumbar epidural steroid injections today as the first in the series of fluoroscopic guidance. Risks were discussed including but not limited to: Bleeding, infection, possibility of epidural hematoma and subsequent neurological compromise, dural puncture, headaches, spinal cord and/or nerve damage, side effects of steroid medication, and poor results regarding pain control. Patient understands and wished to proceed. Patient will return to the clinic in approximate 2 weeks for follow-up, was counseled as to return ap pointment activity level and side effects to be aware of. Medication Injected: Med Injected: Procedure is lumbar epidural steroid injection under local anesthetic using sterile prep and drape at the L5-S1 level using C-arm fluoroscopic guidance in both AP and lateral views medications injected is 120 mg Depo-Medrol +10mL preservative-free normal saline and 2 mL contrast- condition at discharge is stable patient tolerated procedure well had no complications. Condition at Discharge: Condition at Discharge: Condition at discharge stable, patient already the procedure well and had no complications. DRAKE WHITE MD Oct 17, 2020 09:31
== END | disposition home or self-care (01) ==
LOC: PNCL 08:33
PROVIDERS: ATTEND Anesthesiology
DX: M51.16 Intervertebral disc disorders with radiculopathy, lumbar region (principal); M47.26 Other spondylosis with radiculopathy, lumbar region; Z79.899 Other long term (current) drug therapy
CPT/HCPCS: 62323; J1030; J1040; Q9965

== ENCOUNTER → 2020-11-08 | Outpatient (CLI) | payer OTHER ==
[~2020-11-08] MED LIST changes: +ACET325T9 PO; +LORA10TA68 PO; +MELA10CA PO; +VALA500T5 PO
--- NOTE | 2020-11-08 09:31 | PDOC4 ---
Procedure Note: Procedure Note: Patient is consented for lumbar epidural steroid injection. Risks were discussed including but not limited to: Bleeding, infection, possibility of epidural hematoma and subsequent neurological compromise, dural puncture, headaches, spinal cord and/or nerve damage, side effects of steroid medication, and poor results regarding pain control. Patient understands and wished to proceed. Procedure is lumbar epidural steroid injection under local anesthetic using sterile prep and drape at the 5 S1 level using C-arm fluoroscopic guidance in both AP and lateral views medications injected is 120 mg Depo-Medrol +10mL preservative-free normal saline and 2 mL contrast- condition at discharge is stable patient tolerated procedure well had no complications. DRAKE WHITE MD Nov 08, 2020 09:31
--- NOTE | 2020-11-08 09:31 | PDOC ---
Progress Note - Pain Clinic Date of Service: DOS: DATE: 11/08/20 TIME: 09:27 Diagnosis: Dx: Lumbar radiculopathy with lumbar spondylosis lumbar herniated disc and lumbar degenerative disc disease History or Present Illness: HPI: 65-year-old female returns for follow-up status post lumbar epidural surgery x1 October 17, 2020. Patient reports about 50% improvement overall still with pain in the low back and right lower extremity but significantly improved patient can increase her distance walking doing household activities greater ease and comfort travel with greater ease and comfort doing work activities patient reports generally does not awaken her from sleep at night reports pain is a 7 on scale 10 is worse over the past week 3 on average 1 at its least initially doing much better still pain in the low back rating the right lower extremity posterior gluteus posterior thigh posterior calf burning tingling radiating can be dull and tight alternating in the low back as well. Patient reports some right knee pain as well as having x-rays done at [facility] soon regarding osteoarthritis of her knees. Patient reports still her chief complaint is low back and right lower extremity pain significant improved but still present in a radicular fashion. Physical Exam: VS: Blood pressure is 135/89 pulse 61 respirations 16 temperature 98.1 F. 5 foot 6 inches weight is 142 pounds PE: PHYSICAL EXAMINATION: GENERAL: The patient is awake, alert, oriented, appropriate, very pleasant in demeanor HEENT: Shows normocephalic, atraumatic. Extraocular movements are intact and symmetrical. NECK: Shows anterior throat supple without palpable lymphadenopathy noted. Swallow reflex symmetrical. CHEST: Shows normal on inspection. Breath sounds are clear bilaterally. HEART: Shows S1, S2 clear. No murmurs auscultated. ABDOMEN: Soft, nontender, nondistended, obese. No palpable organomegaly is noted. BACK: Shows spine grossly in the midline. Normal-appearing cervical lordotic curvature. There is increased thoracic kyphosis, some minor flattening of the lumbar lordotic curvature. Lumbar paraspinous muscles show symmetrical on inspection, on palpation shows some moderate tenderness diffusely throughout the upper, middle and lower distribution of the paraspinous muscles, but without specific trigger points, without radiation of pain. The patient has good rotational motion of the lumbar spine, both laterally as well as extension and flexion without significant difficulty. EXTREMITIES: Lower extremities show deep tendon reflexes 2+ in the patellar and tendo calcaneus tendons. Motor exam is 4 on a scale of 5 with right do rsiflexion, extension, quadriceps and hamstring flexion and 5/5 on the left. Peripheral pulses are 1+ posterior tibial. No peripheral edema is noted bilaterally. Lower extremities are warm and dry to touch, equal in color and appearance. SKIN: Shows warm and dry, good turgor. No edema. No sores, rashes or bruising throughout. Procedure: Procedure: Options were discussed with the patient. Patient chart reviews her current medication regimen updated current review of systems updated today as well. We will proceed with a second in the series lumbar epidural steroid injection stable fluoroscopic guidance. Risks were discussed including but not limited to: Bleeding, infection, possibility of epidural hematoma and subsequent neurological compromise, dural puncture, headaches, spinal cord and/or nerve damage, side effects of steroid medication, and poor results regarding pain control. Patient understands and wished to proceed. Patient will return to clinic in approximate 2 weeks for follow-up, was counseled as to return appointment activity level and side effects to be aware of. Medication Injected: Med Injected: Procedure is lumbar epidural steroid injection under local anesthetic using st erile prep and drape at the L5-S1 level using C-arm fluoroscopic guidance in both AP and lateral views medications injected is 120 mg Depo-Medrol +10mL preservative-free normal saline and 2 mL contrast- condition at discharge is stable patient tolerated procedure well had no complications. Condition at Discharge: Condition at Discharge: Condition at discharge is stable, patient tolerated the procedure well and had no complications. DRAKE WHITE MD Nov 08, 2020 09:31
== END | disposition home or self-care (01) ==
LOC: PNCL 08:46
PROVIDERS: ATTEND Anesthesiology
DX: M51.16 Intervertebral disc disorders with radiculopathy, lumbar region (principal); M47.26 Other spondylosis with radiculopathy, lumbar region; Z79.899 Other long term (current) drug therapy
CPT/HCPCS: 62323; J1030; J1040; Q9965

== ENCOUNTER → 2020-12-05 | Outpatient (CLI) | payer OTHER ==
--- NOTE | 2020-12-05 11:00 | PDOC ---
Progress Note - Pain Clinic Date of Service: DOS: DATE: 12/05/20 TIME: 10:58 Diagnosis: Dx: Lumbar radiculopathy with lumbar degenerative disc disease lumbar spondylosis and lumbar herniated disc History or Present Illness: HPI: 65-year-old female returns for follow-up status post lumbar epidural steroid injection x2 November 08, 2020. Patient reports she was traveling in [place] recently to some hiking and stumbled and fell and seems to have increased pain in her low back and right leg prior to that she is doing much better at least 75% improvement after the last injection the pain is almost completely gone and is now returned after the fall patient reports is in the right leg posterior gluteus posterior thigh posterior calf worse when sitting better with standing or moving around but with extended walking does increase the pain with radiating after about 10 minutes patient reports the pain is sharp in the back shooting cramping stabbing can be radiating constant or severe in the right lower extremity patient rates is a 5 on a scale of 10 at its worst 2 on average 0 its least and is a 2 today. Patient reports other than the fall no new motor or sensory deficits or other complaints again better with laying down but more noticeable with sitting at this time. Physical Exam: VS: Blood pressure is 137/86 pulse 67 respirations 16 temperature 98.3 F weight is 143 pounds PE: PHYSICAL EXAMINATION: GENERAL: The patient is awake, alert, oriented, appropriate, very pleasant in demeanor. HEENT: Shows normocephalic, atraumatic. Extraocular movements are intact and symmetrical. Oral cavity: Mucous membranes moist and pink. Dentition is intact. NECK: Shows anterior throat supple without palpable lymphadenopathy noted. Swallow reflex symmetrical. CHEST: Shows normal on inspection. Breath sounds are clear bilaterally, distant but no rales rhonchi or wheezes auscultated. HEART: Shows S1, S2 clear. No murmurs auscultated. ABDOMEN: Soft, nontender, nondistended, obese. No palpable organomegaly is noted. BACK: Shows spine grossly in the midline. Normal-appearing cervical lordotic curvature. There is slightly increased thoracic kyphosis, some minor flattening of the lumbar lordotic curvature. Lumbar paraspinous muscles show symmetrical on inspection, on palpation shows some moderate tenderness diffusely throughout the upper, middle and lower distribution of the paraspinous muscles, but without specific trigger points, without radiation of pain. The patient has good rotational motion of the lumbar spine, both laterally as well as extension and flexion without significant difficulty. No tenderness over the spinous processes, sacrum or sacroiliac regions. EXTREMITIES: Lower extremities show deep tendon reflexes 2+ in the patellar and tendo calcaneus tendons. Motor exam is 4 on a scale of 5 with right dorsiflexion, extension, quadriceps and hamstring flexion and 5/5 on the left. Peripheral pulses are 1+ posterior tibial. No peripheral edema is noted bilaterally. Lower extremities are warm and dry to touch, equal in color and appearance. SKIN: Shows warm and dry, good turgor. No edema. No sores, rashes or bruising throughout. Procedure: Procedure: Options discussed with patient. Patient chart was reviewed as her current medication regimen updated current review of systems updated today as well. We will proceed with a third in the series lumbar epidural steroid injection today with fluoroscopic guidance. Risks were discussed including but not limited to: Bleeding, infection, possibility of epidural hematoma and subsequent neurological compromise, dural puncture, headaches, spinal cord and/or nerve damage, side effects of steroid medication, and poor results regarding pain control. Patient understands and wished to proceed. Patient will return to clinic in approximately 2 weeks for follow-up, was counseled as to return appointment activity level and side effects to be aware of. Medication Injected: Med Injected: Procedure is lumbar epidural steroid injection under local anesthetic using sterile prep and drape at the L5-S1 level using C-arm fluoroscopic guidance in both AP and lateral views medications injected is 120 mg Depo-Medrol +10mL preservative-free normal saline and 2 mL contrast- condition at discharge is stable patient tolerated procedure well had no complications. Condition at Discharge: Condition at Discharge: Condition at discharge stable, patient tolerated the procedure well and had no complications. DRAKE WHITE MD Dec 05, 2020 11:00
--- NOTE | 2020-12-05 11:01 | PDOC4 ---
Procedure Note: ICD 10 Code: ICD 10 Code: M 54.17 M 47.817 M 51.27 Procedure Note: Patient was consented for lumbar epidural steroid injection. Risks were discussed including but not limited to: Bleeding, infection, possibility of epidural hematoma and subsequent neurological compromise, dural puncture, headaches, spinal cord and/or nerve damage, side effects of steroid medication, and poor results regarding pain control. Patient understands and wished to proceed. Procedure is lumbar epidural steroid injection under local anesthetic using sterile prep and drape at the L5-S1 level using C-arm fluoroscopic guidance in both AP and lateral views medications injected is 120 mg Depo-Medrol +10mL p reservative-free normal saline and 2 mL contrast- condition at discharge is stable patient tolerated procedure well had no complications. DRAKE WHITE MD Dec 05, 2020 11:01
== END ==
LOC: PNCL 10:00
PROVIDERS: ATTEND Anesthesiology
DX: M51.17 Intervertebral disc disorders with radiculopathy, lumbosacral region (principal); M47.817 Spondylosis without myelopathy or radiculopathy, lumbosacral region
CPT/HCPCS: 62323; J1030; J1040; Q9965